=== PATIENT | male | born 1950 | race Caucasian/White ===

== ENCOUNTER 2023-02-17 10:15 | Day surgery (SDC) | payer MEDICARE, SELFPAY ==
[2023-02-17 11:10] VITALS: BP 151/92; PULSE 79; RESP 16; TEMP 36.5; O2SAT 99
[2023-02-17] MEDS: Lactated Ringers 1,000 ML 80 ML IV (11:35)
--- NOTE | 2023-02-17 12:58 | SCONE_ITS ---
Date of service: 02/17/23 Time of Service: 12:58 Assessment and Plan Assessment and plan (1) Chronic lower GI bleeding: Status: Acute Assessment and plan: 72-year-old man with progressive/worsening fatigue, unintentional weight loss, bowel habit changes, bleeding in his stools and no prior upper or lower endoscopy. At this point he is ready to proceed with the upper and lower endoscopies. He does admit that these have been recommended prior but he has declined to go through with them because of the unnatural nature about thumb as well as believing they were not necessary in the past. We did talk about the possibility of finding no answers at all and that the benefit of doing these endoscopies would be to rule out cancers, inflammatory bowel disease, ulcer disease to name a few. It is certainly my recommendation that we proceed with these but, I did reiterate with him that it is his life and his body and his decision to make. I answered all of his questions to the best my ability. He does see the value in doing these tests and wishes to schedule them today. Overall plan: Upper and lower endoscopy possible hemorrhoid banding. History of Present Illness Narrative: Campos came in consultation at my other office but requested to have his procedure done here at [facility]. He is a 72-year-old man who comes in with bleeding per rectum, changes in his bowel habits - notably very thin stools, and weight loss. This is unintentional. He is otherwise in his usual state of health but does note some degree of fatigue and tiredness. He is not having any abdominal pain. He has not had a colonoscopy before. He does state that he has had colitis for decades. He does not take any medica tion for this. He has not had a colonoscopy to evaluate this. He manages it with his diet. He does not have a family history of colon cancer or stomach/GI cancer but does report that he has multiple brothers who both have bladder cancer. He does not smoke. PFSH All Active Problems (Updated 02/17/23 @ 11:07 by Halima Martinez) Chronic lower GI bleeding (Acute) Abnormal weight loss (Acute) Fatigue (Acute) Decreased energy (Acute) Medical History (Updated 02/17/23 @ 11:07 by Halima Martinez) Anemia Family history of bladder cancer Hypertension Retinal detachment Transient gluten sensitivity Social History Smoking/Tobacco Use Status: Never Smoking risk assessment performed?: Yes Alcohol Intake: never Drug use: Never Substance use type: does not use Do you feel safe at home: Yes Do you feel safe in your relationship?: Yes Exam Narrative Exam Narrative: General: Nontoxic, comfortable and interactive Neuro: Alert and oriented x3 Psych: Appropriate mood and affect, good insight and understanding into his condition Chest: Nonlabored breathing Heart: Regular Results Last Vital Signs Temp 97.7 F 02/17/23 11:10 Pulse 79 02/17/23 11:10 Resp 16 02/17/23 11:10 BP 151/92 H 02/17/23 11:10 Pulse Ox 99 02/17/23 11:10
--- NOTE | 2023-02-17 13:34 | W.COLOREPORT ---
Date of service: 02/17/23 Time of Service: 13:34 Colonoscopy Report Procedure Description: Procedures performed: 1. Colonoscopy Preoperative diagnosis: GI bleeding Postoperative diagnosis: Rectal cancer Surgeon: Richard Montenegro Anesthesia: Oscar Indication for procedure: 73-year-old man who has been losing weight, has been having rectal bleeding for a long time and abdominal discomfort. He has no family history of colon cancer. He has never had a screening colonoscopy. Findings: Large, 60-70% circumferential, rectal cancer. 3-4 cm from the anorectal ring/dentate line. I was able to get the colon the scope to the cecum and no other tumors or polyps were seen. The prep was poor in this area. Small and medium polyps would have been missed. Surveillance/follow-up recommendations: Staging for his cancer Complications: None Blood loss: Minimal Prep: Quite poor in the proximal colon -small or medium polyps would have been missed Specimens: Rectal tumor Procedure in detail: Written consent was obtained from the patient who was in agreement with the risks, benefits and indications of the procedure.? Upper endoscopy was performed (see separate procedure note) and the patient was kept under anesthesia and we started the colonoscopy portion of the procedure. Digital rectal exam and visual examination was performed and within normal limits.? A well?lubricated colonoscope was advanced without difficulty all the way to the cecum identified by the ileocecal valve, and triangular folds and appendiceal orifice.? It was then slowly withdrawn.?? The findings/interventions are noted above. The scope was then removed and the patient tolerated the procedure well and was then taken back to the PACU in hemodynamically stable condition.
--- NOTE | 2023-02-17 13:39 | W.PM.ENDDOP ---
Date of service: 02/17/23 Time of Service: 13:39 Endoscopy Report PROCEDURE DESCRIPTION: Procedures performed: 1.? Esophagogastroduodenoscopy with cold forceps biopsies Preoperative diagnosis: GI bleeding Postoperative diagnosis: Moderate?size(2-3 cm) type I sliding hiatal hernia, LA grade A esophagitis Surgeon: Richard Montenegro Anesthesia: Oscar Indication for procedure: 73-year-old man has never had any work-up prior and has been having rectal bleeding and unintentional weight loss. Findings: - D3, D2 and D1 - normal - no inflammation or ulcers - Pylorus - patent.? No bile reflux visualized during procedure. - Antrum -no visible inflammation - biopsies taken to rule out occult H. pylori - Stomach Body - normal in appearance - Fundus -? Normal.? No polyps. - Hiatus - Retroflexion showed a moderate type I sliding hiatal hernia (3-4 cm slide) - Esophagus -distal esophagus has some mucosal breaks(<5mm) consistent with chronic esophagitis no stricture or evidence of Allen's.? The mid and proximal esophagus was also normal. - Cords/hypopharynx - Normal OVERALL - nothing found/seen which would explain GI bleeding Surveillance/follow-up recommendations: Unlikely to be necessary Procedure in detail: Written consent was obtained from the patient who was in agreement with the risks, the benefits and indication for the procedure. He was taken to the endoscopy suite and anesthesia was administered. A well?lubricated endoscope was passed after we did a timeout. This was passed all the way into the duodenum through a patent pylorus. The scope was then slowly pulled back carefully inspecting with the above?noted findings. The patient tolerated the procedure well, the endoscope was removed and he was turned for the colonoscopy portion of the procedure. (See separate procedure note).
--- NOTE | 2023-02-17 13:40 | W.ANESPRE ---
General Info Date of Service Date Performed: 02/17/23 Height: 6 ft 0.5 in Weight: 61.6 kg Body Mass Index (BMI): 18.1 Surgical Procedure: Operation Date: 02/17/23 11:55 Proposed Procedure Side Surgeon p Colonoscopy/Gastroscopy Luis Montenegro MD s Hemorrhoid Banding Luis Montenegro MD Meds Allergies and Home Medications Allergies Allergy/AdvReac Type Severity Reaction Status Date / Time egg Allergy Unknown Verified 02/17/23 11:08 iodine Allergy Unknown Skin Rash Verified 02/17/23 11:08 gluten Allergy Unknown Other (See Uncoded 02/17/23 11:08 Comment) wheat Allergy Unknown Other (See Uncoded 02/17/23 11:08 Comment) Home Medication Medication Instructions Recorded B-complex with vitamin C 1 cap PO DAILY 01/22/23 cholecalciferol (vitamin D3) 125 125 mcg PO DAILY 01/22/23 mcg (5,000 unit) capsule krill oil 500 mg capsule 500 mg PO DAILY 01/22/23 mecobalamin (vitamin B12) 1,000 1,000 mcg PO DAILY 01/22/23 mcg chewable tablet (B12 Active) ferrous sulfate 15 mg iron (75 15 mg PO DAILY 02/17/23 mg)/mL oral syringe (ORAL USE) Current Visit Medications: Current Medications Generic Name Dose Route Start Last Admin Trade Name Sadie PRN Reason Stop Dose Admin Ringer's Solution 1,000 mls @ 80 mls/hr 02/17/23 06:00 02/17/23 11:35 IV 02/17/23 23:59 80 mls/hr INFUSION WILLA Administration IV Miscellaneous Supplies 1 each 02/17/23 06:00 Iv Access IV 02/17/23 23:59 DIRECTED WILLA Sodium Chloride 0 ml 02/17/23 06:00 Normal Saline Flush 10 Ml Syr IV 02/17/23 23:59 PRN PRN Sodium Chloride 0 ml 02/17/23 06:00 Normal Saline 10 Ml Vial IJ 02/17/23 23:59 DIRECTED PRN Sterile Water 0 ml 02/17/23 06:00 Water,Injection,Sterile 10 Ml Vial IJ 02/17/23 23:59 DIRECTED PRN PFSH Active Problems Active Problems: Problem Status Onset Code Chronic lower GI bleeding K92.2 Abnormal weight loss R63.4 Fatigue R53.83 Decreased energy R53.83 Medical History Medical History (Updated 02/17/23 @ 11:07 by Halima Martinez) Anemia Family history of bladder cancer Hypertension Retinal detachment Transient gluten sensitivity Medical History Comments:: Pt. states he is very sensitive to medications; BP variable Tobacco Smoking/Tobacco Use Status: Never Alcohol Alcohol Intake: never Substance Use Substance use: Never Substance use type: does not use Vital Signs and Lab Results Vital Signs Most Recent Vital Signs in EMR: Most Recent Vital Signs Temp Pulse Resp BP Pulse Ox 36.5 C 79 16 151/92 H 99 02/17/23 11:10 02/17/23 11:10 02/17/23 11:10 02/17/23 11:10 02/17/23 11:10 Lab Results Blood Type / Crossmatch: No Data to Display Complete Blood Count: No Data to Display Complete Metabolic Panel: No Data to Display Liver Function Panel: No Data to Display Coagulation Panel: No Data to Display Cardiac Panel: No Data to Display Arterial Blood Gas: No Data to Display Venous Blood Gas: No Data to Display Pancreas Panel: No Data to Display Thyroid Panel: No Data to Display Infectious Disease: No Data to Display Blood Cultures: No Data to Display Toxicology Panel: No Data to Display Anesthesia Assessment and Plan Anesthesia History Personal History: No History of General Anesthesia Family History: No Family History of Anesthesia Complications Exercise Tolerance Exercise Tolerance: Metabolic Equivalents>4 Cardiac & Pulmonary Exam Cardiac Exam: Normal S1/S2 Heart Sounds Pulmonary Exam: Clear Bilateral Breath Sounds Implantable Cardiac Device Does patient have a Pacemaker or an ICD?: No Airway Exam Known Difficult Airway: No Mallampati Class: 1 Mouth Opening: Normal (> 3cm) Thyromental Distance: Greater than 3 cm Neck Range of Motion: Full ROM Neck Circumference: Normal Teeth Condition: Normal Dentition ASA Classification ASA Score: ASA 3 Emergency Case?: No NPO Status NPO Status: NPO Clears >2 hours, Solids >8 hours Anesthesia Plan Resuscitation Status: Full Code Anesthesia Technique: MAC Anesthesia Airway Planned: Natural Airway Monitors Used: Standard Monitors
[2023-02-17 13:42] VITALS: BMI 18.1
--- NOTE | 2023-02-17 13:55 | STOM_PTH ---
PATIENT: Campos Preston LOC: [facility] U#:[id number] AGE/SX: 73/M ROOM: RE02/17/[address]: Luis Montenegro : 1950 BED: DIS: 02/17/2023 SPEC #: [id number] RECD: 02/17/23 17:24 STATUS: [facility] #: [id number] CRISTIANE: 02/17/23 13:[address]: Luis Montenegro DEPT: Surgical Specimen RECD BY: Suzi Parker ENTERED: 02/17/23 17:25 SP TYPE: STOMACH OTHR DR: Rupert Rivas Tissues: 1 - STOMACH BIOPSY 2 - ESOPHAGUS BIOPSY 3 - BIOPSY BOWEL Procedures: GROSS AND MICRO LEVEL 4 IMMUNOPEROXIDASE STAIN SPECIAL STAIN 1 Comments: [id number]
[2023-02-17 14:21] VITALS: BP 145/85; PULSE 100; RESP 18; TEMP 36.3; O2SAT 97
[2023-02-17 14:50] VITALS: BP 133/83; PULSE 76; RESP 16; TEMP 36.1; O2SAT 99
--- NOTE | 2023-02-17 15:04 | W.ANESPOSTOP ---
Postoperative Evaluation Date, Time and Location Date Performed: 02/17/23 Time Performed: 15:04 Patient Location: Day Surgery Unit Vital Signs Most Recent Imported Vital Signs: Most Recent Vital Signs Temp Pulse Resp BP Pulse Ox 36.1 C L 76 16 133/83 99 02/17/23 14:50 02/17/23 14:50 02/17/23 14:50 02/17/23 14:50 02/17/23 14:50 Pain Score Most Recent Pain Score: Most Recent Pain Score Pain Level 0 02/17/23 14:50 Assessment Mental Status: Awake (Alert & Oriented to Patient Baseline) Airway and Respiratory Function: Patent airway with normal (patient baseline) respiratory exam Cardiovascular Function: Hemodynamically Stable Hydration Status: Adequately Hydrated Nausea & Vomiting: No Nausea or Vomiting Pain: Pt. Denies Any Pain Peripheral Nerve Block: Patient did not receive a nerve block
== END 2023-02-17 15:41 | disposition home or self-care (01) ==
PROVIDERS: PCP Family Medicine; Visit Provider Student in an Organized Health Care Education/Training Program
PROC: (CPT 43239; principal; 2023-02-17 11:45)
DX: C20 Malignant neoplasm of rectum (principal); K92.1 Melena; R63.4 Abnormal weight loss; Z68.1 Body mass index [BMI] 19.9 or less, adult; R19.4 Change in bowel habit; R53.83 Other fatigue; K44.9 Diaphragmatic hernia without obstruction or gangrene; K20.90 Esophagitis, unspecified without bleeding; K31.89 Other diseases of stomach and duodenum
CPT/HCPCS: 43239; 45380; 88305; 88312; 88361